=== PATIENT | female | born 1975 | race Caucasian/White ===

== ENCOUNTER 2020-05-18 05:29 | Observation (INO) | payer OTHER ==
[2020-05-11 12:12] LABS: BASOPHILS # (AUTO) 0.1 X10'3 (0-0.2); BASOPHILS % (AUTO) 0.9 % (0-1); EOSINOPHILS # (AUTO) 0.1 X10'3 (0-0.9); EOSINOPHILS % (AUTO) 1.4 % (0-6); LYMPHOCYTES % (AUTO) 29.7 % (21-51); MEAN CORPUSCULAR HEMOGLOBIN 22.9 PG (27.0-31.0); MEAN CORPUSCULAR HGB CONC 32.9 g/dL (33.0-36.5); MEAN CORPUSCULAR VOLUME 69.6 FL (78-98); MEAN PLATELET VOLUME 9.2 FL (7.4-10.4); MONOCYTES # (AUTO) 0.5 X10'3 (0-0.9); MONOCYTES % (AUTO) 7.8 % (2-12); NEUTROPHILS % (AUTO) 60.2 % (42-75); PRE OP HEMATOCRIT 36.1 % (35.0-45.0); PRE OP HEMOGLOBIN 11.9 g/dL (12.0-16.0); PRE OP PLATELET COUNT 191 X10'3 (140-440); RED BLOOD COUNT 5.19 X10'6 (4.20-5.60); RED CELL DISTRIBUTION WIDTH 23.6 % (11.5-14.5)
[2020-05-11 12:36] LABS: ALBUMIN 4.4 G/DL (3.4-5.0); ALBUMIN/GLOBULIN RATIO 1.1 (1.1-1.5); ALKALINE PHOSPHATASE 54 IU/L (46-116); BLOOD UREA NITROGEN 10 MG/DL (7-18); BUN/CREATININE RATIO 16.7 (6.6-38.0); CALCIUM 9.3 MG/DL (8.5-10.1); CHLORIDE 102 MMOL/L (99-107); PRE OP ALT 20 U/L (30-65); PRE OP ANION GAP 10 (8-16); PRE OP AST 15 U/L (10-37); PRE OP BILIRUB, TOTAL 0.4 MG/DL (0.0-1.0); PRE OP GLUCOSE 91 MG/DL (70-104); PRE OP POTASSIUM 3.4 MMOL/L (3.4-5.1); PRE OP SODIUM 139 MMOL/L (135-145); TOTAL CARBON DIOXIDE 26.9 MMOL/L (24-32); TOTAL PROTEIN 8.4 G/DL (6.4-8.2); eGFR > 90 ML/MIN
[2020-05-11 12:38] LABS: ANISOCYTOSIS 3+; ELLIPTOCYTES FEW; HYPOCHROMASIA 1+; MICROCYTOSIS 2+; PLATELET ESTIMATE NORMAL; POLYCHROMASIA FEW
[2020-05-11 12:44] LABS: HCG SERUM QL NEGATIVE
[2020-05-18] VITALS (22 sets, daily range): BP systolic 110–142; BP diastolic 61–88
[~2020-05-18] VITALS: Ht 160 cm; Wt 52.2 kg
[~2020-05-18 05:29] MED LIST: NO HOME MEDS; ringers solution, lacted 1,000 ML IV SCH
[2020-05-18] MEDS ORDERED: ceFOXitin 2GM-NS 100mL ADDvant 100 ML IV ONE (05:30)
[2020-05-18] MEDS ORDERED: famotidine 20mg tablet PO ONE (05:30)
[2020-05-18] MEDS ORDERED: LIDOcaine 1% (10mg/ml) 2ml vial ONE (05:44)
[2020-05-18] MEDS ORDERED: LIDOcaine 1% W/epiNEPHrine 1:100,000 20ml vial ONE (06:43)
[2020-05-18] MEDS ORDERED: BUPIVAcaine 0.5% inj/PF 30 ML ONE (06:44)
[2020-05-18] MEDS ORDERED: midazolam 1 mg/ML 2ml injection IV PRN (06:45)
[2020-05-18] MEDS ORDERED: hydrALAZINE 20mg/ml inj. IV PRN (07:20)
[2020-05-18] MEDS ORDERED: ringers solution, lacted 1,000 ML IV SCH (07:20)
[2020-05-18] MEDS ORDERED: ondansetron/PF 4mg/2ml inj IV PRN ×2 (07:20→10:10)
[2020-05-18] MEDS ORDERED: labetalol 20mg/4ml (5mg/ml) syringe IV PRN (07:20)
[2020-05-18] MEDS ORDERED: fentaNYL/PF 50MCG/1 ML 2ML syringe ONE ×2 (07:20→09:19)
[2020-05-18] MEDS ORDERED: morphine 2 MG/ML inj. syringe IV PRN (07:20)
[2020-05-18] MEDS ORDERED: fentaNYL/PF 50MCG/1 ML 2ML syringe IV PRN ×2 (07:20)
[2020-05-18] MEDS ORDERED: midazolam 1 mg/ML 2ml injection ONE (07:21)
[2020-05-18] MEDS ORDERED: propofol inj 20 ML IV ONE (07:26)
[2020-05-18] MEDS ORDERED: rocuronium 10mg/ml inj IV ONE ×3 (07:26→08:41)
[2020-05-18] MEDS ORDERED: LIDOcaine 2% (20mg/ml) 5ml vial ONE (07:26)
[2020-05-18] MEDS ORDERED: dexamethasone sod phosphate 4mg/ml inj. ONE (07:27)
[2020-05-18] MEDS ORDERED: ondansetron/PF 4mg/2ml inj ONE (07:27)
[2020-05-18] MEDS ORDERED: sevoflurane 250ml liquid IH ONE (07:32)
[2020-05-18] MEDS ORDERED: dexmedetomidin/NS 400mcg/100mL bag IV ONE (07:32)
[2020-05-18] MEDS ORDERED: BUPIVAcaine 0.5% inj/PF 30 ml vial IJ ONE (09:00)
[2020-05-18] MEDS ORDERED: glycopyrrolate 0.2mg/ml inj ONE (09:20)
[2020-05-18] MEDS ORDERED: neostigmine methylsulfate 1 MG/ML 10ml vial ONE (09:20)
[2020-05-18] MEDS ORDERED: fluoroscein sod 10% (100mg/ml) 5ml vial ONE (09:37)
[2020-05-18] MEDS ORDERED: CADD PCA waste documentation MC PRN (10:10)
[2020-05-18] MEDS ORDERED: normal saline 500ML IV soln IV PRN (10:10)
[2020-05-18] MEDS ORDERED: oxyCODONE/APAP 5-325mg tablet PO PRN ×2 (10:10)
[2020-05-18] MEDS ORDERED: naloxone 0.4 mg/ml inj IV PRN (10:10)
[2020-05-18] MEDS ORDERED: mag hydrox/Alum hydrox/simeth 30ml oral suspension PO PRN (10:10)
[2020-05-18] MEDS ORDERED: diphenhydrAMINE 50 mg/ml inj IV PRN (10:10)
[2020-05-18] MEDS ORDERED: temazepam 15mg capsule PO PRN (10:10)
[2020-05-18] MEDS ORDERED: ketorolac trometh. 30mg/ml inj. IV PRN (10:10)
[2020-05-18] MEDS ORDERED: LORazepam 2 mg/ml vial IV PRN (10:10)
[2020-05-18] MEDS: morphine 4 MG/ML inj SYRINge IV PRN ×2 (10:43→11:01)
[2020-05-18] MEDS: ringers solution, lacted 1,000 ML IV SCH ×3 (11:31→19:42)
[2020-05-18] MEDS: HYDROmorphone/NS 1 mg/ml CADD 50 ML IV SCH ×7 (11:46→23:00)
--- NOTE | 2020-05-18 11:54 | NUR ---
Patient in room . I have received report from danish palma and had the opportunity to ask questions and awaiting patient arrival.
--- NOTE | 2020-05-18 12:06 | NUR ---
Report called to receiving nurse. Transferred via BED, 2 BAGS OF Belongings SENT W/PT TO ROOM 349A, RECEIVING RN AT BEDSIDE TO RECEIVE PT, BLL, CALL LIGHT GIVEN, SIDE RAILS UP X 2. Special Issues communicated to receiving nurse. YES. Addendum: 05/18/20 at 1210 by Elisabeth Emery RN Amended: Links added.
--- NOTE | 2020-05-18 12:30 | NUR ---
patient alert and orientated, three bandaide sites CDI to lower abdomen. chitra pad in place minimal drainage .IDC in place draining fluroscent greenish colored urine from dye adequate output . VSS. Daughters at bedside. Using Dilaudid cadd appropriately with effect. up ambulated 150ft in hallway fair effort. c/o nausea, medicated with Zofran. will continue to monitor.
[2020-05-18] MEDS: simethicone 80mg chew tab PO SCH ×2 (13:13→17:41)
--- NOTE | 2020-05-18 18:31 | NUR ---
Problems reprioritized. Patient report given, questions answered & plan of care reviewed with prudence RN.
--- NOTE | 2020-05-18 19:00 | NUR ---
Patient in room [facility]. I have received report from NUVIA KRAMER and had the opportunity to ask questions and assume patient care.
[2020-05-18] MEDS: docusate sod 100mg capsule PO SCH (19:36)
[2020-05-19 00:09] VITALS: BP 126/74
[2020-05-19] MEDS: HYDROmorphone/NS 1 mg/ml CADD 50 ML IV SCH ×3 (01:00→05:00)
[2020-05-19] MEDS: ringers solution, lacted 1,000 ML IV SCH (03:03)
--- NOTE | 2020-05-19 04:41 | NUR ---
CADD DISCONTINUED 040
--- NOTE | 2020-05-19 04:42 | NUR ---
AS400 ADMINISTRATOR DISCONTINUED PER MD ORDER Addendum: 05/19/20 at 0443 by Linda Disla RN Amended: Links added.
--- NOTE | 2020-05-19 06:35 | NUR ---
Patient in room [facility]. I have received report from Linda KRAMER and had the opportunity to ask questions and assume patient care.
[2020-05-19 06:36] LABS: BASOPHILS % (AUTO) 0.2 % (0-1); EOSINOPHILS % (AUTO) 0.1 % (0-6); HEMATOCRIT 25.5 % (35.0-45.0); HEMOGLOBIN 8.2 g/dl (12.0-16.0); LYMPHOCYTES # (AUTO) 1.3 X10'3 (1.1-4.8); LYMPHOCYTES % (AUTO) 12.8 % (21-51); MEAN CORPUSCULAR HEMOGLOBIN 22.5 PG (27.0-31.0); MEAN CORPUSCULAR HGB CONC 32.2 g/dL (33.0-36.5); MEAN CORPUSCULAR VOLUME 69.7 FL (78-98); MEAN PLATELET VOLUME 9.8 FL (7.4-10.4); MONOCYTES # (AUTO) 0.8 X10'3 (0-0.9); MONOCYTES % (AUTO) 7.7 % (2-12); NEUTROPHILS # (AUTO) 8.2 X10'3 (1.8-7.7); NEUTROPHILS % (AUTO) 79.2 % (42-75); PLATELET COUNT 243 X10'3 (140-440); RED BLOOD COUNT 3.66 X10'6 (4.20-5.60); RED CELL DISTRIBUTION WIDTH 22.8 % (11.5-14.5); WHITE BLOOD COUNT 10.4 X10'3 (4.5-11.0)
[2020-05-19 06:37] LABS: ALBUMIN 2.9 G/DL (3.4-5.0); ANION GAP 9 (8-16); BLOOD UREA NITROGEN 8 MG/DL (7-18); BUN/CREATININE RATIO 12.9 (6.6-38.0); CALCIUM 8.7 MG/DL (8.5-10.1); CHLORIDE 104 MMOL/L (99-107); CREATININE 0.62 MG/DL (0.40-0.90); GLUCOSE 98 MG/DL (70-104); POTASSIUM 3.8 MMOL/L (3.5-5.1); SODIUM 141 MMOL/L (135-145); TOTAL CARBON DIOXIDE 27.7 MMOL/L (24-32); eGFR > 90 ML/MIN
[2020-05-19 07:13] VITALS: BP 126/70
[2020-05-19] MEDS: docusate sod 100mg capsule PO SCH (07:55)
[2020-05-19] MEDS: simethicone 80mg chew tab PO SCH (07:55)
[2020-05-19 08:05] LABS: PLATELET ESTIMATE NORMAL
[2020-05-19 08:06] LABS: ANISOCYTOSIS 3+; ELLIPTOCYTES FEW; HYPOCHROMASIA 1+; MICROCYTOSIS 2+; POLYCHROMASIA FEW; STOMATOCYTES FEW
--- NOTE | 2020-05-19 09:40 | NUR ---
Pt is DC to home with daughter. Pt is A & O x4 and in no apparent distress. Pt verbalizes understanding of all DC orders. Pt able to teach back DC orders and aware of the importance of following up with Dr concepcion and PCP. Pt's IV cath was removed an is intact. Pt got dressed and packed her belongings. Pt was wheeled to the front where her daughter picked her up.
== END 2020-05-19 09:42 | disposition home or self-care (01) ==
LOC: PAS 05:29 → SUR 3N 10:08
PROVIDERS: ADMIT Obstetrics & Gynecology; ATTEND Obstetrics & Gynecology
DX: D25.9 Leiomyoma of uterus, unspecified (principal); Z20.822 Contact with and (suspected) exposure to COVID-19; N92.0 Excessive and frequent menstruation with regular cycle; N80.0 Endometriosis of uterus; F41.9 Anxiety disorder, unspecified; R93.89 Abnormal findings on diagnostic imaging of other specified body structures; Z87.891 Personal history of nicotine dependence; Z79.899 Other long term (current) drug therapy
CPT/HCPCS: 36415; 58552; 80048; 80053; 82948; 84703; 85008; 85025; 86885; 86900; 86901; 96365; 96366; 96375; C1758; G0378; J0694; J1100; J1170; J1885; J2001; J2250; J2270; J2405; J2704; J2710; J3010; J7120; U0003; A4355; A4618; A6250; A7000; J3490